=== PATIENT | female | born 1955 | race Caucasian/White ===

== ENCOUNTER 2017-11-06 08:53 | Emergency (ER) | payer OTHER, SELFPAY ==
[2017-11-06 09:00] VITALS: BP 156/81; PULSE 72; RESP 14; TEMP 36.2; O2SAT 100; BMI 19.3
--- NOTE | 2017-11-06 09:11 | DI.RAD.S_ITS ---
PROCEDURE: XR ANKLE LT MIN 3V INDICATIONS: non traumatic left ankle pain TECHNIQUE: 3 views of the ankle were acquired. COMPARISON: None. FINDINGS: Bones: No fractures or dislocations. Ankle mortise is normally aligned. No suspicious bony lesions. Well-corticated rounded/ovoid ossific/calcific densities are evident at the tip of the medial malleolus, suggesting previous injury. There are mild degenerative changes of the tibiotalar joint. Soft tissues: No tibiotalar joint effusion. There is mild soft tissue edema about the ankle, best appreciated anteriorly. IMPRESSION: Mild degenerative changes of the left ankle without acute fracture. Dictated by: Doni Avendano M.D. on 11/06/2017 at 8:41 Approved by: Doni Avendano M.D. on 11/06/2017 at 8:42
[2017-11-06 09:26] VITALS: PULSE 70
--- NOTE | 2017-11-06 09:31 | ED.LOWEXIN ---
HPI - Extremity Injury (Lower) General Chief Complaint: Extremity Injury, Lower Stated Complaint: LEFT ANKLE PAIN Time Seen by Provider: 11/06/17 09:05 Source: patient Mode of arrival: wheelchair Limitations: no limitations History of Present Illness HPI Narrative: Patient is a 62-year-old female presents with left ankle pain this. She denies any injury or potential injury last evening. She woke up this morning and was in such bad pain she was crawling on her hands and knees in the house. No numbness or tingling. She is able to move it freely without any pain or difficulty and feeling silly for coming to the emergency department. She has pain anteriorly between her malleoli. She has put ice on it no swelling no rash, no numbness or tingling. Related Data Home Medications Medication Instructions Recorded Confirmed No Known Home Medications 11/06/17 11/06/17 Allergies Allergy/AdvReac Type Severity Reaction Status Date / Time ciprofloxacin [From Cipro] Allergy Intermediate Hives Verified 11/06/17 09:05 Sulfa (Sulfonamide Allergy Intermediate Shakiness Verified 11/06/17 09:05 Antibiotics) promethazine [From Phenergan] AdvReac Intermediate Shakiness Verified 11/06/17 09:05 Review of Systems Review of Systems GENERAL: Denies chills,fever HEENT: Denies throat pain RESPIRATORY: Denies dyspnea, cough, wheezing CARDIOVASCULAR: Denies chest pain, palpitations GASTROINTESTINAL: Denies nausea, vomiting MUSCULOSKELETAL: See HPI SKIN: No rash, no laceration, no pruritus NEUROLOGIC: Denies weakness, dizziness, headache, numbness 8 point review of systems is negative except for those stated above and HPI PFSH Medical History Dupuytren's contracture (Acute) Social History Smoking Status: Never smoker Exam Initial Vital Signs Initial Vital Signs: Vital Signs Temperature 97.1 F L 11/06/17 09:00 Pulse Rate 72 11/06/17 09:00 Respiratory Rate 14 11/06/17 09:00 Blood Pressure 156/81 H 11/06/17 09:00 Pulse Oximetry 100 11/06/17 09:00 GENERAL: Well-appearing, well-nourished and in no acute distress. CARDIOVASCULAR: peripheral pulses in tact, cap refill <2 sec RESPIRATORY: No respiratory distress, speaks in full sentences without difficulty EXTREMITIES: Normal range of motion, no clubbing or edema. Neurovascularly intact -left ankle no gross bony deformities no swelling. Full range of motion no achellies tenderness. Distal pedal pulse intact. No foot pain no gross bony deformity NEUROLOGICAL: Cranial nerves II through XII grossly intact. Normal gait and speech. SKIN: Warm, dry, no petechiae, no rashes or lesions. Course Orders Ordered: ED Orders 11/06/17 09:11 XR ankle LT min 3V Stat Vital Signs - 8 hr 11/06/17 09:00 11/06/17 09:26 11/06/17 10:05 Temperature 97.1 F L Pulse Rate 72 70 Pulse Rate [Left Dorsalis Pedis] 70 Respiratory Rate 14 12 Blood Pressure 156/81 H Blood Pressure [Right Arm] 138/75 H Pulse Oximetry 100 99 MDM - Extremity Injury (Lower) Imaging Data XR left ankle: Attestation: I personally reviewed and interpreted this imaging study as follows: My impression: no fx Radiologist's impression: PROCEDURE: XR ANKLE LT MIN 3V INDICATIONS: non traumatic left ankle pain TECHNIQUE: 3 views of the ankle were acquired. COMPARISON: None. FINDINGS: Bones: No fractures or dislocations. Ankle mortise is normally aligned. No suspicious bony lesions. Well-corticated rounded/ovoid ossific/calcific densities are evident at the tip of the medial malleolus, suggesting previous injury. There are mild degenerative changes of the tibiotalar joint. Soft tissues: No tibiotalar joint effusion. There is mild soft tissue edema about the ankle, best appreciated anteriorly. IMPRESSION: Mild degenerative changes of the left ankle without acute fracture. Dictated by: Doni Avendano M.D. on 11/06/2017 at 8:41 Discharge Plan Departure Patient Disposition: Home, Self-Care Clinical Impression: Acute ankle pain Discharge Date/Time: 11/06/17 10:07 Interventions: ED Discharge Assessment Last Done: 11/06/17 10:06 Instructions: DI for Ankle Pain Activity Restrictions/Additional Instructions: *You have been diagnosed with ankle pain *What to do: No visualized fracture on x-ray, recommend ice 20 min at a time, elevate, increase activity as tolerated *Continue to take medications as directed *Follow up with your primary care provider in 2-3 days *Return to ER if you should have increasing pain, numbness, tingling, weakness or any new, worsening or concerning symptoms Prescriptions: No Action No Known Home Medications RF: 0
[2017-11-06 10:05] VITALS: BP 138/75; PULSE 70; RESP 12; O2SAT 99
== END 2017-11-06 10:07 | disposition home or self-care (01) ==
PROVIDERS: Emergency Provider Emergency Medicine
DX: M25.572 Pain in left ankle and joints of left foot (principal)
CPT/HCPCS: 73610; 99282; 99283

== ENCOUNTER 2020-02-01 07:50 | Emergency (ER) | payer OTHER, SELFPAY ==
[2020-02-01] VITALS (10 sets, daily range): BP systolic 125–143; BP diastolic 58–75; PULSE 50–63; RESP 11–30; TEMP 35.7; O2SAT 94–100; BMI 18.8
--- NOTE | 2020-02-01 08:17 | ED.ABDPAIN ---
HPI - Abdominal Pain General Chief Complaint: Abdominal Pain Stated Complaint: RLQ Abd Pain Time Seen by Provider: 02/01/20 07:58 Source: patient Mode of arrival: Ambulatory Limitations: no limitations History of Present Illness HPI narrative: Patient is a 64-year-old female who presents with sudden onset of right lower quadrant pain. She said yesterday she was doing well went to bed without any issue and this morning she has intense right lower quadrant pain. She denies any back pain pain does not seem to come and go it is fairly constant. No radiation. No history of kidney stones. She denies any fever or chills. MD complaint: abdominal pain Onset (ago): hour(s) Pain Consistency: constant Location: RLQ Severity: moderate Quality: cramping and stabbing Radiation: none Migration to: no migration Relieving factors: nothing Exacerbating factors: nothing Related Data Previous Rx's Medication Instructions Recorded hydrocodone-acetaminophen 1 tab PO Q6H PRN #10 tab 02/01/20 ondansetron 4 mg PO Q8H PRN #10 tab 02/01/20 Allergies Allergy/AdvReac Type Severity Reaction Status Date / Time ciprofloxacin [From Cipro] Allergy Intermediate Hives Verified 11/06/17 09:05 Sulfa (Sulfonamide Allergy Intermediate Shakiness Verified 11/06/17 09:05 Antibiotics) promethazine [From Phenergan] AdvReac Intermediate Shakiness Verified 11/06/17 09:05 Review of Systems Review of Systems Narrative: GENERAL: Denies chills, fatigue, malaise, fever, sweats, travel HEENT: Denies sinus pain, ear pain, sore throat, difficulty swallowing, neck pain RESPIRATORY: Denies dyspnea, cough, wheezing, hemoptysis, sputum. CARDIOVASCULAR: Denies chest pain, palpitations, orthopnea, edema GASTROINTESTINAL: See HPI : Denies dysuria, frequency, incontinence, hematuria, urinary retention, flank pain. MUSCULOSKELETAL: Denies weakness, joint pain, or bony pain SKIN: No rash, no erythema, no pruritus NEUROLOGIC: Denies weakness, dizziness, headache, numbness, change in speech, confusion PSYCHIATRIC: No concerning psychosocial issues. 12 point review of systems is negative except for those stated above and HPI Patient History Medical History Dupuytren's contracture (Acute) Hypertension (Acute) Social History Smoking Status: Never smoker Smoking Status: Never smoker alcohol intake frequency: 0-2 drinks per day Substance Use Type: does not use Exam Initial Vital Signs Initial Vital Signs: Vital Signs Temperature 96.3 F L 02/01/20 07:55 Pulse Rate 50 L 02/01/20 07:55 Respiratory Rate 18 02/01/20 07:55 Blood Pressure 125/60 02/01/20 07:55 Pulse Oximetry 99 02/01/20 07:55 GENERAL: Patient appears in pain HEENT: Head atraumatic,EOMI, pupils reactive, face symmetric, moist mucous membranes CARDIOVASCULAR: Regular rate and rhythm without murmurs, rubs or gallops. RESPIRATORY: Breath sounds equal bilaterally, no wheezes rales or rhonchi. ABDOMEN: Soft, right lower quadrant pain mild guarding normal bowel sounds : No CVA tenderness EXTREMITIES: Normal range of motion, no clubbing or edema. Neurovascularly intact NEUROLOGICAL: Alert and oriented x4. SKIN: Warm, dry, no laceration, no petechiae, no rashes or lesions. Course Orders Ordered: ED Orders 02/01/20 08:00 Complete Blood Count AUTO DIFF Stat Comprehensive Metabolic Panel Stat Lipase Stat 02/01/20 09:51 CT abdomen pelvis w con Stat Sodium Chloride (Normal Saline 0.9%) 1,000 mls @ 150 mls/hr IV CONT QUITA Last Admin: 02/01/20 08:31 Dose: 150 mls/hr Documented by: ALETA Discontinued Medications Ketorolac Tromethamine (Toradol) 30 mg IV NOW ONE Stop: 02/01/20 08:11 Last Admin: 02/01/20 08:32 Dose: 30 mg Documented by: ALETA Morphine Sulfate (Morphine) 4 mg IV NOW ONE Stop: 02/01/20 08:10 Last Admin: 02/01/20 08:31 Dose: 4 mg Documented by: ALETA Morphine Sulfate (Morphine) 4 mg IV NOW ONE Stop: 02/01/20 10:20 Vital Signs Vital signs: Vital Signs - 8 hr 02/01/20 07:55 02/01/20 07:56 02/01/20 08:00 Temperature 96.3 F L Pulse Rate 50 L 51 L 50 L Respiratory Rate 18 26 H 20 Blood Pressure 125/60 Pulse Oximetry 99 94 96 02/01/20 08:30 02/01/20 08:47 02/01/20 09:00 Temperature Pulse Rate 54 L 56 L 54 L Respiratory Rate 24 19 11 L Blood Pressure 130/58 L 135/58 L Pulse Oximetry 100 100 100 02/01/20 09:30 02/01/20 10:07 Temperature Pulse Rate 63 60 Respiratory Rate 20 30 H Blood Pressure 143/65 H Pulse Oximetry 100 100 MDM - Abdominal Pain Lab Data Attestation: I reviewed the patient's lab results. Result diagrams: 02/01/20 08:00 02/01/20 08:00 Labs: Lab Results 02/01/20 02/01/20 Range/Units 08:00 08:00 WBC 10.1 (4.5-11.0) X10^3/uL RBC 4.10 (4.0-5.2) X10^6/uL Hgb 13.0 (12.0-16.0) g/dL Hct 38.7 (36-46) % MCV 94.2 (80-100) fL MCH 31.6 (26-34) PG MCHC 33.5 (30-36) % RDW 13.2 (11.6-14.8) % Plt Count 206 (150-400) X10^3/uL Neut % (Auto) 74.2 (50-75) % Lymph % (Auto) 21.1 L (25-40) % [place] % (Auto) 1.5 L (3-14) % Eos % (Auto) 1.3 L (2-4) % Baso % (Auto) 1.9 (0-2) % Neut # (Auto) 7500 H (8282-4531) /uL Lymph # (Auto) 2100 (6422-1589) /uL [place] # (Auto) 100 (0-900) /uL Eos # (Auto) 100 (0-450) /uL Baso # (Auto) 200 H (0-100) /uL Sodium 139 (137-145) mmol/L Potassium 3.8 (3.4-5.1) mmol/L Chloride 107 (98-107) mmol/L Carbon Dioxide 26 (22-32) mmol/L BUN 23 H (7-17) mg/dL Creatinine 0.62 (0.52-1.04) mg/dL Estimated GFR > 60.0 (>60) mL/min BUN/Creatinine Ratio 37.1 H (6-22) Glucose 124 H (80-110) mg/dL Calcium 8.8 (8.4-10.2) mg/dL Total Bilirubin 0.6 (0.2-1.3) mg/dL AST 29 (14-36) IU/L ALT 15 (<35) IU/L Alkaline Phosphatase 75 (38-126) U/L Total Protein 6.7 (6.3-8.2) g/dL Albumin 3.9 (3.5-5.0) g/dL Globulin 2.8 (1.7-4.1) g/dL Albumin/Globulin Ratio 1.4 (1.0-2.8) Lipase 120 (23-300) U/L Point of care testing: Urine Dip Bedside Urine Glucose Negative Bedside Urine Bilirubin - Negative Bedside Urine Ketone - Negative Urine Specific [place] 1.015 Bedside Urine Occult Blood +++ Bedside Urine pH 5.5 Bedside Urine Protein - Negative Bedside Urine Urobilinogen - Negative Bedside Urine Nitrite - Negative Bedside Urine Leukocytes - Negative Esterase Imaging Data CT scan - abdomen/pelvis: Radiologist's Impression: PROCEDURE: CT ABDOMEN PELVIS W CON INDICATIONS: Right lower quadrant abdominal pain TECHNIQUE: After the administration of intravenous contrast, 5 mm thick sections acquired from the diaphragm to the symphysis. 5 mm coronal and sagittal reformats were acquired. For radiation dose reduction, the following was used: automated exposure control, adjustment of mA and/or kV according to patient size. COMPARISON: None. FINDINGS: Image quality: Excellent. ABDOMEN: Lung bases: There is mild dependent atelectasis bilaterally. Heart size is normal. There is mild concentric wall thickening of the visualized esophagus. Solid organs: Evaluation of the liver demonstrates no focal hepatic lesions. The gallbladder appears within normal limits without calcified gallstones. Biliary system is non-dilated. Pancreas enhances normally. No peripancreatic fat stranding or fluid collections. No pancreatic duct dilatation. The spleen is normal in size. No adrenal nodules. There is a small obstructing stone at the right ureteropelvic junction measuring 3-4 mm with associated mild to moderate right hydronephrosis. There is a small amount of periureteral and anterior perinephric fluid suggestive of forniceal rupture. Additional bilateral nonobstructing renal stones are also demonstrated, at least 4 on the right and 1 on the left. The largest stone within the right kidney measures 3-4 mm and visualized small left stone measures 2 mm. No left hydronephrosis. Left ureter is nondistended. Peritoneum and bowel: Bowel loops demonstrate normal wall thickness and caliber. There is a small amount of colonic stool as well as mild fecalization in the distal small bowel. Findings are suggestive of mild constipation or stasis. No evidence of appendicitis. There are few colonic diverticula without acute diverticulitis. No free fluid or air. Nodes and vessels: No retroperitoneal or mesenteric adenopathy by size criteria. Aorta and inferior vena cava are normal in size. Miscellaneous: No ventral hernias. PELVIS: Genitourinary: Bladder wall thickness is normal. Miscellaneous: No inguinal hernias or adenopathy. Bones: No suspicious bony lesions. No vertebral body compression fractures. IMPRESSION: 1. Obstructing urinary stone at the right UPJ with associated mild to moderate hydronephrosis. A small amount of associated periureteral and perinephric fluid suggests sequelae of mild forniceal rupture. 2. Additional small bilateral nonobstructing renal stones as described. 3. No evidence of appendicitis. Dictated by: Jeferson Cabrera M.D. on 02/01/2020 at 9:18 ECG Data Attestation: I personally reviewed and interpreted this ECG as follows: Prior ECG tracings: not available for review Interpretation: Normal sinus rhythm rate 51 year interval 188 QRS [address] changes MDM Narrative Medical decision making narrative: Patient's pain is much better after Toradol and morphine. She is found to have 3-4 mm kidney stone on the right with other kidney stones in the kidneys. He has no prior history of kidney stones. Discussed with her straining her urine for lab analysis. No sign of infection. Discharge Plan Departure Patient Disposition: Home Clinical Impression: Kidney stones Discharge Date/Time: 02/01/20 11:09 Instructions: DI for Kidney Stones Activity Restrictions/Additional Instructions: * You've been diagnosed with kidney stone * What to do: Increase fluid intake, Strain urine, try to catch stone * Please follow-up with your primary care provider in the next 2-3 days, you may require urology consultation please discuss this with -If you should have fever, or pain is uncontrolled with medication at home or any other concerning symptoms return to ER for further evaluation MEDICATIONS Take [place] every 6 hours if needed for severe pain Take Zofran every 4-6 hours if needed for nausea CONTROLLED SUBSTANCE DISCHARGE (Narcotoic/benzodiazepine) 1. You have been prescribed narcotic medications, it does have acetaminophen/Tylenol/paracetamol in it so do not take extra Tylenol or Tylenol containing products 2. Please understand that we cannot provide further refills of narcotics, benzodiazepines or controlled substances through the ED and her pain management will need to be through your provider. 3. While on these medications you cannot drive or operate heavy machinery. 4. You cannot sign legal documents or perform any duties such as this. 5. As long as you're taking opiate pain medications he should also be taking a stool softener such as Colace, Dulcolax, MiraLAX or prune juice, to help avoid constipation. Prescriptions: New hydrocodone-acetaminophen 5-325 mg tablet 1 tab PO Q6H PRN (Reason: pain) Qty: 10 RF: 0 ondansetron 4 mg tablet,disintegrating 4 mg PO Q8H PRN (Reason: nausea and vomiting) Qty: 10 RF: 0
[2020-02-01 08:18] LABS: Add Manual Diff / Slide Review NO; Basophils Absolute Auto 200 /uL (0-100); Basophils Percent Auto 1.9 % (0-2); Eosinophils Absolute Auto 100 /uL (0-450); Eosinophils Percent Auto 1.3 % (2-4); Hematocrit 38.7 % (36-46); Lymphocytes Absolute Auto 2100 /uL (1100-4500); Lymphocytes Percent Auto 21.1 % (25-40); Mean Corpuscular HGB Conc 33.5 % (30-36); Mean Corpuscular Hemoglobin 31.6 PG (26-34); Mean Corpuscular Volume 94.2 fL (80-100); Monocytes Absolute Auto 100 /uL (0-900); Monocytes Percent Auto 1.5 % (3-14); Neutrophils Absolute Auto 7500 /uL (1500-7000); Neutrophils Percent Auto 74.2 % (50-75); Platelet Count 206 X10^3/uL (150-400); Red Cell Distribution Width 13.2 % (11.6-14.8); White Blood Cell Count 10.1 X10^3/uL (4.5-11.0)
[2020-02-01 08:22] LABS: Alanine Aminotransferase 15 IU/L (<35); Albumin 3.9 g/dL (3.5-5.0); Albumin Globulin Ratio 1.4 (1.0-2.8); Alkaline Phosphatase 75 U/L (38-126); Aspartate Aminotransferase 29 IU/L (14-36); BUN Creatinine Ratio 37.1 (6-22); Bilirubin Total 0.6 mg/dL (0.2-1.3); Blood Urea Nitrogen 23 mg/dL (7-17); Calcium 8.8 mg/dL (8.4-10.2); Carbon Dioxide 26 mmol/L (22-32); Chloride 107 mmol/L (98-107); Estimated Glomerular Filt Rate > 60.0 mL/min (>60); Globulin 2.8 g/dL (1.7-4.1); Glucose 124 mg/dL (80-110); HEMOLYSIS 16 (0-50); Lipase 120 U/L (23-300); Potassium 3.8 mmol/L (3.4-5.1); Sodium 139 mmol/L (137-145); Total Protein 6.7 g/dL (6.3-8.2)
[2020-02-01] MEDS: SODIUM CHLORIDE 0.9% 1,000 ML 150 ML IV (08:31)
[2020-02-01] MEDS: MORPHINE 4 MG/ML INJ IV (08:31)
[2020-02-01] MEDS: KETOROLAC 60 MG/2 ML VIAL 30 MG IV (08:32)
--- NOTE | 2020-02-01 09:51 | DI.CT.S_ITS ---
PROCEDURE: CT ABDOMEN PELVIS W CON INDICATIONS: Right lower quadrant abdominal pain TECHNIQUE: After the administration of intravenous contrast, 5 mm thick sections acquired from the diaphragm to the symphysis. 5 mm coronal and sagittal reformats were acquired. For radiation dose reduction, the following was used: automated exposure control, adjustment of mA and/or kV according to patient size. COMPARISON: None. FINDINGS: Image quality: Excellent. ABDOMEN: Lung bases: There is mild dependent atelectasis bilaterally. Heart size is normal. There is mild concentric wall thickening of the visualized esophagus. Solid organs: Evaluation of the liver demonstrates no focal hepatic lesions. The gallbladder appears within normal limits without calcified gallstones. Biliary system is non-dilated. Pancreas enhances normally. No peripancreatic fat stranding or fluid collections. No pancreatic duct dilatation. The spleen is normal in size. No adrenal nodules. There is a small obstructing stone at the right ureteropelvic junction measuring 3-4 mm with associated mild to moderate right hydronephrosis. There is a small amount of periureteral and anterior perinephric fluid suggestive of forniceal rupture. Additional bilateral nonobstructing renal stones are also demonstrated, at least 4 on the right and 1 on the left. The largest stone within the right kidney measures 3-4 mm and visualized small left stone measures 2 mm. No left hydronephrosis. Left ureter is nondistended. Peritoneum and bowel: Bowel loops demonstrate normal wall thickness and caliber. There is a small amount of colonic stool as well as mild fecalization in the distal small bowel. Findings are suggestive of mild constipation or stasis. No evidence of appendicitis. There are few colonic diverticula without acute diverticulitis. No free fluid or air. Nodes and vessels: No retroperitoneal or mesenteric adenopathy by size criteria. Aorta and inferior vena cava are normal in size. Miscellaneous: No ventral hernias. PELVIS: Genitourinary: Bladder wall thickness is normal. Miscellaneous: No inguinal hernias or adenopathy. Bones: No suspicious bony lesions. No vertebral body compression fractures. IMPRESSION: 1. Obstructing urinary stone at the right UPJ with associated mild to moderate hydronephrosis. A small amount of associated periureteral and perinephric fluid suggests sequelae of mild forniceal rupture. 2. Additional small bilateral nonobstructing renal stones as described. 3. No evidence of appendicitis. Dictated by: Jeferson Cabrera M.D. on 02/01/2020 at 9:18 Approved by: Jeferson Cabrera M.D. on 02/01/2020 at 9:25
--- NOTE | 2020-02-01 10:37 | PC.NURSE ---
Patient reports pain after CT which was significant subsided on it's own and is now a /. Refuses morphine at this time.
== END 2020-02-01 11:09 | disposition home or self-care (01) ==
PROVIDERS: Emergency Provider Emergency Medicine
DX: N20.0 Calculus of kidney (principal)
CPT/HCPCS: 36415; 74177; 80053; 81003; 83690; 85025; 93005; 96361; 96374; 96375; 99284; J1885; J2270; Q9967

== ENCOUNTER → 2020-02-11 10:57 | Outpatient (CLI) | payer OTHER, SELFPAY ==
--- NOTE | 2020-02-11 11:00 | DI.RAD.S_ITS ---
PROCEDURE: XR KUB INDICATIONS: kidney stones TECHNIQUE: One view of the abdomen acquired. COMPARISON: [facility], CR, XR ABDOMEN 1 VIEW, 02/08/2020, 10:37. FINDINGS: Surgical changes and devices: None. Bowel: Bowel gas pattern is normal. Soft tissues: Sub 5 mm right renal calculi appear unchanged. Previous left-sided nephrolithiasis is less conspicuous. Bilateral pelvic phleboliths as before Bones: No suspicious bony lesions. IMPRESSION: Unchanged appearance of right nephrolithiasis. Radiographically, previous left nephrolithiasis less conspicuous since 02/08/20. Dictated by: Kevin Barahona M.D. on 02/11/2020 at 13:53 Approved by: Kevin Barahona M.D. on 02/11/2020 at 13:55
== END ==
PROVIDERS: PCP Family Medicine; Referring Provider Specialist; Visit Provider Specialist
DX: N20.0 Calculus of kidney (principal); N20.1 Calculus of ureter
CPT/HCPCS: 74018; 81002

== ENCOUNTER → 2020-02-22 12:17 | Outpatient (CLI) | payer OTHER, SELFPAY ==
[2020-02-22 13:34] LABS: Calcium 9.4 mg/dL (8.4-10.2)
[2020-02-23 07:29] LABS: Parathyroid Hormone Int 50 pg/mL (15-65)
== END ==
PROVIDERS: PCP Family Medicine; Referring Provider Specialist; Visit Provider Specialist
DX: N39.0 Urinary tract infection, site not specified (principal); N20.0 Calculus of kidney
CPT/HCPCS: 36415; 82310; 83970; 84550; 87086

== ENCOUNTER → 2021-06-20 13:40 | Outpatient (CLI) | payer MEDICARE, SELFPAY ==
--- NOTE | 2021-06-20 13:47 | DI.RAD.S_ITS ---
PROCEDURE: XR KUB INDICATIONS: ureteral calculus TECHNIQUE: One view of the abdomen acquired. COMPARISON: [facility], CT, CT ABDOMEN PELVIS W CON, 02/01/2020, 9:56. [facility], CR, XR KUB, 02/11/2020, 11:03. FINDINGS: Surgical changes and devices: None. Bowel: Bowel gas pattern is normal. Soft tissues: Faintly visualized calcifications are noted overlying the right kidney felt to be relatively similar compared to prior exam. However, overlying stool is present obscuring visualization. There is several small foci of calcification overlying the left kidney not well seen on prior exam. However, overlying bowel loops are present on both current and prior exam within this region. No definitive ureteral calcification is identified. Phleboliths are noted within the pelvis. Visualized solid organ contours appear normal in size. Bones: No suspicious bony lesions. IMPRESSION: Relatively unchanged appearance of calcifications overlying the right kidney. Faint calcifications overlying the region of the left kidney are noted possibly related to nephrolithiasis versus bowel contents. Dictated by: Parisa Gerber M.D. on 06/20/2021 at 17:32 Approved by: Parisa Gerber M.D. on 06/20/2021 at 17:34
== END ==
PROVIDERS: PCP Family Medicine; Referring Provider Specialist; Visit Provider Specialist
DX: N20.2 Calculus of kidney with calculus of ureter (principal)
CPT/HCPCS: 74018

== ENCOUNTER 2021-09-17 14:16 | Emergency (ER) | payer MEDICARE, SELFPAY ==
[2021-09-17 14:23] VITALS: BP 183/88; PULSE 55; RESP 16; TEMP 37; O2SAT 100; BMI 19.5
--- NOTE | 2021-09-17 14:34 | DI.CT.S_ITS ---
PROCEDURE: CT KIDNEY URETER BLADDER (KUB) INDICATIONS: Right flank pain history stones TECHNIQUE: Axial sections were acquired from the lung bases to the pubic symphysis. Coronal and sagittal reformats were performed. For radiation dose reduction, the following was used: automated exposure control, adjustment of mA and/or kV according to patient size. COMPARISON: None. FINDINGS: Image quality: Excellent. Lung bases: Unremarkable. Heart: No significant findings. URINARY:5 mm calculus at the left ureterovesical junction results in moderate right hydronephrosis and hydroureter. Multiple additional nonobstructive calculi present in both kidneys, largest in the right kidney measures 5 mm. Left hydronephrosis. Bladder: Normal wall thickness. No stones. ABDOMEN: Liver: Unremarkable. Gallbladder: Unremarkable. Biliary ducts: Unremarkable. Pancreas: Unremarkable. Spleen: Unremarkable. Adrenal Glands: Unremarkable. Stomach and Bowel: Stomach, small bowel loops, and colon are unremarkable. Moderate fecal debris in the colon. Peritoneum: No abnormal intraperitoneal fluid. No free air. Ventral Wall: No hernia. Abdominal Nodes: No enlarged retroperitoneal or mesenteric lymph nodes. Vessels: Aorta and inferior vena cava are normal in size. PELVIS: Pelvic Organs: Unremarkable. Pelvic Nodes: Unremarkable. Miscellaneous: No inguinal hernias are seen. Bones: Unremarkable. IMPRESSION: 5 mm calculus the right ureterovesical junction results in moderate right hydronephrosis and hydroureter. Additional bilateral nonobstructing renal calculi. Approved by: Christ Sow M.D. on 09/17/2021 at 14:29
[2021-09-17] MEDS: ONDANSETRON 4 MG/2 ML INJ IV (14:39)
[2021-09-17] MEDS: KETOROLAC 30 MG/ML VIAL 15 MG IV (14:39)
--- NOTE | 2021-09-17 14:41 | PC.NURSE ---
History of kidney stones, feels similar. Sudden onset of right flank pain.
[2021-09-17 14:48] LABS: Add Manual Diff / Slide Review NO; Basophils Absolute Auto 0 /uL (0-100); Basophils Percent Auto 0.7 % (0-2); Eosinophils Absolute Auto 100 /uL (0-450); Eosinophils Percent Auto 0.9 % (2-4); Hematocrit 38.6 % (36-46); Hemoglobin 13.1 g/dL (12.0-16.0); Lymphocytes Absolute Auto 2000 /uL (1100-4500); Mean Corpuscular Hemoglobin 31.4 PG (26-34); Mean Corpuscular Volume 92.3 fL (80-100); Monocytes Absolute Auto 700 /uL (0-900); Monocytes Percent Auto 10.7 % (3-14); Neutrophils Absolute Auto 3700 /uL (1500-7000); Neutrophils Percent Auto 56.7 % (50-75); Platelet Count 227 X10^3/uL (150-400); Red Blood Cell Count 4.18 X10^6/uL (4.0-5.2); Red Cell Distribution Width 12.6 % (11.6-14.8); White Blood Cell Count 6.6 X10^3/uL (4.5-11.0)
[2021-09-17 14:55] LABS: Amorphous Sediment Urine 1+; Bacteria Urine None Seen; RBC Urine 0-1/HPF (0-5/HPF); WBC Urine None Seen (0-5/HPF)
[2021-09-17 15:05] LABS: Alanine Aminotransferase 15 IU/L (<35); Albumin 4.7 g/dL (3.5-5.0); Albumin Globulin Ratio 1.7 (1.0-2.8); Alkaline Phosphatase 84 U/L (38-126); Aspartate Aminotransferase 29 IU/L (14-36); BUN Creatinine Ratio 27.9 (6-22); Bilirubin Total 0.3 mg/dL (0.2-1.3); Blood Urea Nitrogen 19 mg/dL (7-17); Calcium 9.2 mg/dL (8.4-10.2); Carbon Dioxide 27 mmol/L (22-32); Chloride 105 mmol/L (98-107); Estimated Glomerular Filt Rate > 60 mL/min (>60); Globulin 2.8 g/dL (1.7-4.1); Glucose 117 mg/dL (80-110); HEMOLYSIS < 15 (0-50); Potassium 3.6 mmol/L (3.4-5.1); Sodium 140 mmol/L (137-145); Total Protein 7.5 g/dL (6.3-8.2)
[2021-09-17] MEDS: MORPHINE 4 MG/ML INJ IV (15:26)
[2021-09-17 15:30] VITALS: BP 187/82; PULSE 61; RESP 20; O2SAT 100
[2021-09-17 16:00] VITALS: BP 178/80; PULSE 56; RESP 16; O2SAT 100
[2021-09-17 16:03] VITALS: PULSE 57; O2SAT 100
--- NOTE | 2021-09-17 16:12 | PC.NURSE ---
Pt experiencing intermittent severe right flank pain, [facility] aware.
[2021-09-17 16:30] VITALS: BP 162/74; PULSE 55; O2SAT 94
[2021-09-17] MEDS: HYDROMORPHONE 0.5 MG INJ IV (16:54)
[2021-09-17 17:00] VITALS: BP 153/67; PULSE 54; O2SAT 100
[2021-09-17] MEDS: ONDANSETRON 4 MG ODT SL (17:45)
--- NOTE | 2021-09-17 19:43 | ED_ITS ---
HPI - Female Genitourinary <Izabela Sinha PA-C - Last Filed: 09/17/21 19:58> General Chief complaint: Urogenital-Female Stated complaint: Thinks kidney stone, right side pain Time Seen by Provider: 09/17/21 14:44 History of Present Illness HPI Narrative: Patient is a 66-year-old female presenting with right-sided flank pain. She denies any urinary urgency, burning with urination, or blood in her urine. She reports episodic severe right flank pain with occasional nausea and dizziness at the height of the pain. She describes the pain as 10/10 while it is at its worse. She has not taken anything for pain. She has a history of a kidney stone 1.5 years ago. Related Data Home Medications Medication Instructions Recorded Confirmed cholecalciferol (vitamin D3) 100 100 mcg PO DAILY 02/11/20 06/29/21 mcg (4,000 unit) capsule Previous Rx's Medication Instructions Recorded ondansetron 4 mg disintegrating 4 mg PO Q6-8H PRN #10 tab 09/17/21 tablet tamsulosin 0.4 mg capsule (Flomax) 0.4 mg PO DAILY #10 cap 09/17/21 Allergies Allergy/AdvReac Type Severity Reaction Status Date / Time ciprofloxacin [From Cipro] Allergy Intermediate Hives Verified 09/17/21 14:25 Sulfa (Sulfonamide Allergy Intermediate Shakiness Verified 09/17/21 14:25 Antibiotics) promethazine [From Phenergan] AdvReac Intermediate Shakiness Verified 09/17/21 14:25 Review of Systems <Izabela Sinha PA-C - Last Filed: 09/17/21 19:58> Review of Systems Narrative: GENERAL: Denies fatigue, fever, or chills HEENT: Denies ear pain, vision changes, sore throat, or difficulty swallowing RESPIRATORY: Denies shortness of breath, cough, or wheezing CARDIOVASCULAR: Denies chest pain, pressure, palpitations, or edema GASTROINTESTINAL: Reports occasional nausea, denies vomiting, changes in bowel movements, or abdominal pain : See HPI MUSCULOSKELETAL: Denies weakness, arthralgias, or myalgias SKIN: No rash, pruritis, or erythema NEUROLOGIC: Denies weakness, headache, numbness, tingling or confusion PSYCHIATRIC: No concerning psychosocial issues. Patient History <Izabela Sinha PA-C - Last Filed: 09/17/21 19:58> Medical History Arthritis Bilateral nephrolithiasis Calcium nephrolithiasis Dupuytren's contracture Hypertension Right ureteral calculus alcohol intake frequency: 0-2 drinks per day Substance Use Type: does not use Exam <DARIAN Dickson Last Filed: 09/17/21 19:58> Narrative Exam Narrative: GENERAL: 66 year old patient appears stated age. Well-developed patient, in moderate distress. HEAD: Atraumatic. Normocephalic. EYES: Pupils equal round and reactive. Extraocular motions intact. No scleral icterus. No injection or drainage. ENT: Nose without bleeding, purulent drainage. Throat without erythema, tonsillar hypertrophy or exudate. Airway patent. NECK: Trachea midline. Non tender CARDIOVASCULAR: Regular rate and rhythm without murmurs, gallops, or rubs. RESPIRATORY: Clear to auscultation. Breath sounds equal bilaterally. No wheezes, rales, or rhonchi. GASTROINTESTINAL: Abdomen soft, non-tender, nondistended. EXTREMITIES: No edema or joint tenderness. BACK: Nontender without deformity or crepitance. No flank tenderness to palpation and no CVA tenderness. NEURO: AOx3. SKIN: No rash or erythema of visible areas Initial Vital Signs Initial Vital Signs: Vital Signs Temperature 98.6 F 09/17/21 14:23 Pulse Rate 55 L 09/17/21 14:23 Respiratory Rate 16 09/17/21 14:23 Blood Pressure 183/88 H 09/17/21 14:23 Pulse Oximetry 100 09/17/21 14:23 <Carson Menchaca DO - Last Filed: 09/18/21 01:58> Initial Vital Signs Initial Vital Signs: Vital Signs Temperature 98.6 F 09/17/21 14:23 Pulse Rate 55 L 09/17/21 14:23 Respiratory Rate 16 09/17/21 14:23 Blood Pressure 183/88 H 09/17/21 14:23 Pulse Oximetry 100 09/17/21 14:23 Course <Izabela Sinha PA-C - Last Filed: 09/17/21 19:58> Orders Ordered: Discontinued Medications Hydromorphone HCl (Hydromorphone 0.5 Mg Inj) 0.5 mg IV NOW ONE Stop: 09/17/21 16:46 Last Admin: 09/17/21 16:54 Dose: 0.5 mg Documented by: ZARA Ketorolac Tromethamine (Ketorolac 30 Mg/Ml Vial) 15 mg IV NOW ONE Stop: 09/17/21 14:36 Last Admin: 09/17/21 14:39 Dose: 15 mg Documented by: FRANCIE Morphine Sulfate (Morphine 4 Mg/Ml Inj) 4 mg IV NOW ONE Stop: 09/17/21 15:24 Last Admin: 09/17/21 15:26 Dose: 4 mg Documented by: ZARA Ondansetron HCl (Ondansetron 4 Mg/2 Ml Inj) 4 mg IV NOW ONE Stop: 09/17/21 14:37 Last Admin: 09/17/21 14:39 Dose: 4 mg Documented by: FRANCIE Ondansetron HCl (Ondansetron 8 Mg Tablet) 8 mg PO NOW ONE Stop: 09/17/21 17:34 Ondansetron HCl (Ondansetron 8 Mg Tablet) 4 mg PO NOW ONE Stop: 09/17/21 17:39 Ondansetron HCl (Ondansetron 4 Mg Odt) 4 mg SL NOW ONE Stop: 09/17/21 17:42 Last Admin: 09/17/21 17:45 Dose: 4 mg Documented by: ZARA Vital Signs Vital signs: Vital Signs - 8 hr 09/17/21 14:23 09/17/21 15:30 09/17/21 16:00 Temperature 98.6 F Pulse Rate 55 L 61 56 L Respiratory Rate 16 20 16 Blood Pressure 183/88 H 187/82 H 178/80 H Pulse Oximetry 100 100 100 09/17/21 16:03 09/17/21 16:30 09/17/21 17:00 Temperature Pulse Rate 57 L 55 L 54 L Respiratory Rate Blood Pressure 162/74 H 153/67 H Pulse Oximetry 100 94 100 <Carson Menchaca DO - Last Filed: 09/18/21 01:58> Orders Ordered: Discontinued Medications Hydromorphone HCl (Hydromorphone 0.5 Mg Inj) 0.5 mg IV NOW ONE Stop: 09/17/21 16:46 Last Admin: 09/17/21 16:54 Dose: 0.5 mg Documented by: ZARA Ketorolac Tromethamine (Ketorolac 30 Mg/Ml Vial) 15 mg IV NOW ONE Stop: 09/17/21 14:36 Last Admin: 09/17/21 14:39 Dose: 15 mg Documented by: FRANCIE Morphine Sulfate (Morphine 4 Mg/Ml Inj) 4 mg IV NOW ONE Stop: 09/17/21 15:24 Last Admin: 09/17/21 15:26 Dose: 4 mg Documented by: ZARA Ondansetron HCl (Ondansetron 4 Mg/2 Ml Inj) 4 mg IV NOW ONE Stop: 09/17/21 14:37 Last Admin: 09/17/21 14:39 Dose: 4 mg Documented by: FRANCIE Ondansetron HCl (Ondansetron 8 Mg Tablet) 8 mg PO NOW ONE Stop: 09/17/21 17:34 Ondansetron HCl (Ondansetron 8 Mg Tablet) 4 mg PO NOW ONE Stop: 09/17/21 17:39 Ondansetron HCl (Ondansetron 4 Mg Odt) 4 mg SL NOW ONE Stop: 09/17/21 17:42 Last Admin: 09/17/21 17:45 Dose: 4 mg Documented by: ZARA Vital Signs Vital signs: Vital Signs - 8 hr 09/17/21 14:23 09/17/21 15:30 09/17/21 16:00 Temperature 98.6 F Pulse Rate 55 L 61 56 L Respiratory Rate 16 20 16 Blood Pressure 183/88 H 187/82 H 178/80 H Pulse Oximetry 100 100 100 09/17/21 16:03 09/17/21 16:30 09/17/21 17:00 Temperature Pulse Rate 57 L 55 L 54 L Respiratory Rate Blood Pressure 162/74 H 153/67 H Pulse Oximetry 100 94 100 MDM - Female Genitourinary <Izabela Sinha PA-C - Last Filed: 09/17/21 19:58> Lab Data Result diagrams: 09/17/21 14:41 09/17/21 14:41 Labs: Lab Results 09/17/21 09/17/21 09/17/21 Range/Units 14:31 14:41 14:41 WBC 6.6 (4.5-11.0) X10^3/uL RBC 4.18 (4.0-5.2) X10^6/uL Hgb 13.1 (12.0-16.0) g/dL Hct 38.6 (36-46) % MCV 92.3 (80-100) fL MCH 31.4 (26-34) PG MCHC 34.0 (30-36) % RDW 12.6 (11.6-14.8) % Plt Count 227 (150-400) X10^3/uL Neut % (Auto) 56.7 (50-75) % Lymph % (Auto) 31.0 (25-40) % [place] % (Auto) 10.7 (3-14) % Eos % (Auto) 0.9 L (2-4) % Baso % (Auto) 0.7 (0-2) % Neut # (Auto) 3700 (1902-2375) /uL Lymph # (Auto) 2000 (6165-1201) /uL [place] # (Auto) 700 (0-900) /uL Eos # (Auto) 100 (0-450) /uL Baso # (Auto) 0 (0-100) /uL Sodium 140 (137-145) mmol/L Potassium 3.6 (3.4-5.1) mmol/L Chloride 105 (98-107) mmol/L Carbon Dioxide 27 (22-32) mmol/L BUN 19 H (7-17) mg/dL Creatinine 0.68 (0.52-1.04) mg/dL Estimated GFR > 60 (>60) mL/min BUN/Creatinine Ratio 27.9 H (6-22) Glucose 117 H (80-110) mg/dL Calcium 9.2 (8.4-10.2) mg/dL Total Bilirubin 0.3 (0.2-1.3) mg/dL AST 29 (14-36) IU/L ALT 15 (<35) IU/L Alkaline Phosphatase 84 (38-126) U/L Total Protein 7.5 (6.3-8.2) g/dL Albumin 4.7 (3.5-5.0) g/dL Globulin 2.8 (1.7-4.1) g/dL Albumin/Globulin Ratio 1.7 (1.0-2.8) Urine RBC 0-1/hpf (0-5/HPF) Urine WBC None seen (0-5/HPF) Amorphous Sediment 1+ Urine Bacteria None seen (None) Ur Culture Indicated? Culture not indicate Urine Dip Bedside Urine Glucose Negative Bedside Urine Bilirubin - Negative Bedside Urine Ketone +/- 5 Urine Specific [place] 6.0 Bedside Urine Occult Blood - Negative Bedside Urine Protein - Negative Bedside Urine Urobilinogen - Negative Bedside Urine Nitrite - Negative Bedside Urine Leukocytes - Negative Esterase Imaging Data CT scan - abdomen/pelvis: Radiologist's Impression: [address] [address] [address] Scan Report Signed Patient: Nadya Vrik MR#: [id number] : 1955 Acct:[id number] Age/Sex: 66 / F Date of Service: 09/17/21 Loc: ED Accession Number: [id number] ?? Procedure: CT kidney ureter bladder (KUB) Ordering Provider: Akila Perez D.O. PROCEDURE:? CT KIDNEY URETER BLADDER (KUB) ? INDICATIONS:? Right flank pain history stones ? TECHNIQUE:? Axial sections were acquired from the lung bases to the pubic symphysis.? Coronal and sagittal reformats were performed.? For radiation dose reduction, the following was used: ?automated exposure control, adjustment of mA and/or kV according to patient size.? ? COMPARISON:? None. ? FINDINGS:? Image quality:? Excellent.? ? Lung bases:? Unremarkable.? ? Heart:? No significant findings. ? URINARY:5 mm calculus at the left ureterovesical junction results in moderate right hydronephrosis and hydroureter.? Multiple additional nonobstructive calculi present in both kidneys, largest in the right kidney measures 5 mm.? Left hydronephrosis. ? Bladder:? Normal wall thickness. No stones. ? ? ? ABDOMEN: Liver:? Unremarkable.? ? Gallbladder:? Unremarkable.? ? Biliary ducts:? Unremarkable.? ? Pancreas:? Unremarkable.? ? Spleen:? Unremarkable.? ? Adrenal Glands:? Unremarkable.? ? ? Stomach and Bowel:? Stomach, small bowel loops, and colon are unremarkable.? Moderate fecal debris in the colon. Peritoneum:? No abnormal intraperitoneal fluid.? No free air.? ? Ventral Wall: ? No hernia.? Abdominal Nodes:? No enlarged retroperitoneal or mesenteric lymph nodes.? Vessels:? Aorta and inferior vena cava are normal in size.? ? PELVIS: Pelvic Organs:? Unremarkable.? ? Pelvic Nodes: Unremarkable. Miscellaneous: No inguinal hernias are seen. ? ? ? Bones:? Unremarkable. ? IMPRESSION:? ? 5 mm calculus the right ureterovesical junction results in moderate right hydron ephrosis and hydroureter. ? Additional bilateral nonobstructing renal calculi. ? Approved by: Christ Sow M.D. on 09/17/2021 at 14:29? [facility] Narrative Medical decision making narrative: Patient is a 66-year-old female presenting with episodic right flank pain. Her CT reveals a 5 mm calculus in the right ureterovesical junction with moderate right hydronephrosis and hydroureter. This is likely the cause of her symptoms. Her urinalysis shows no sign of infection. She was given IV Zofran, 4 mg of morphine, and 0.5 mg of Dilaudid which helped her symptoms. Due to the size of her stone, I sent in a prescription for Flomax and Zofran. She declined a prescription for pain as she states she has an old one still at home. I instructed her to follow up with Dr. Canales tomorrow for further evaluation and management. Findings and discharge diagnosis discussed with patient/family followed by verbalization of understanding Return precautions discussed with patient/family whom verbalize understanding. <Carson Menchaca, DO - Last Filed: 09/18/21 01:58> Lab Data Labs: Lab Results 09/17/21 09/17/21 09/17/21 Range/Units 14:31 14:41 14:41 WBC 6.6 (4.5-11.0) X10^3/uL RBC 4.18 (4.0-5.2) X10^6/uL Hgb 13.1 (12.0-16.0) g/dL Hct 38.6 (36-46) % MCV 92.3 (80-100) fL MCH 31.4 (26-34) PG MCHC 34.0 (30-36) % RDW 12.6 (11.6-14.8) % Plt Count 227 (150-400) X10^3/uL Neut % (Auto) 56.7 (50-75) % Lymph % (Auto) 31.0 (25-40) % [place] % (Auto) 10.7 (3-14) % Eos % (Auto) 0.9 L (2-4) % Baso % (Auto) 0.7 (0-2) % Neut # (Auto) 3700 (4798-8100) /uL Lymph # (Auto) 2000 (0588-3951) /uL [place] # (Auto) 700 (0-900) /uL Eos # (Auto) 100 (0-450) /uL Baso # (Auto) 0 (0-100) /uL Sodium 140 (137-145) mmol/L Potassium 3.6 (3.4-5.1) mmol/L Chloride 105 (98-107) mmol/L Carbon Dioxide 27 (22-32) mmol/L BUN 19 H (7-17) mg/dL Creatinine 0.68 (0.52-1.04) mg/dL Estimated GFR > 60 (>60) mL/min BUN/Creatinine Ratio 27.9 H (6-22) Glucose 117 H (80-110) mg/dL Calcium 9.2 (8.4-10.2) mg/dL Total Bilirubin 0.3 (0.2-1.3) mg/dL AST 29 (14-36) IU/L ALT 15 (<35) IU/L Alkaline Phosphatase 84 (38-126) U/L Total Protein 7.5 (6.3-8.2) g/dL Albumin 4.7 (3.5-5.0) g/dL Globulin 2.8 (1.7-4.1) g/dL Albumin/Globulin Ratio 1.7 (1.0-2.8) Urine RBC 0-1/hpf (0-5/HPF) Urine WBC None seen (0-5/HPF) Amorphous Sediment 1+ Urine Bacteria None seen (None) Ur Culture Indicated? Culture not indicate Urine Dip Bedside Urine Glucose Negative Bedside Urine Bilirubin - Negative Bedside Urine Ketone +/- 5 Urine Specific [place] 6.0 Bedside Urine Occult Blood - Negative Bedside Urine Protein - Negative Bedside Urine Urobilinogen - Negative Bedside Urine Nitrite - Negative Bedside Urine Leukocytes - Negative Esterase Discharge Plan Departure Patient Disposition: Home Clinical Impression: Right ureteral calculus Instructions: DI for Kidney Stones Activity Restrictions/Additional Instructions: *You have been diagnosed with a 5 mm right kidney stone. You have been given 2 prescriptions today, please take these as directed. You should follow up with Dr. Canales's office tomorrow for further evaluation and management. Please return back to the ER if you develop any fever, burning with urination, increased flank pain, increased vomiting, or any other concerning symptoms. *What to do: *Please continue to take your regular medications as directed. [X] New medication prescriptions sent to your pharmacy: [[facility]] [ ] New medication written as a paper prescription [ ] No new medications given *Please follow up with your primary care provider in 2-3 days, call for an appointment. Let them know you were seen in the Emergency Department and that we ask that you be seen in follow up. We will electronically transmit a record of today's note if your PCP is in our system *If you do not have a primary care provider please contact the [facility] Call Center at [phone] and they can help get you set up with a doctor in the community. *Return to Emergency Department if you should have any new, worsening or concerning symptoms, such as [fever greater than 101 F, shaking chills, worsening pain, persistent vomiting or other bothersome symptoms] Prescriptions: New tamsulosin [Flomax] 0.4 mg capsule 0.4 mg PO DAILY Qty: 10 0RF ondansetron 4 mg tablet,disintegrating 4 mg PO Q6-8H PRN (Reason: nausea and vomiting) Qty: 10 0RF No Action cholecalciferol (vitamin D3) 100 mcg (4,000 unit) capsule 100 mcg PO DAILY 0RF Referrals: Latisha Bonilla MD [Primary Care Provider] - Marcello Mcnamara MD [Physician] - <Carson Menchaca DO - Last Filed: 09/18/21 01:58> Cosign ED Attending Doloresature Attestation: I was immediately available in the department for consultation. Documentation has been reviewed. I agree with assessment and plan.
== END 2021-09-17 17:48 | disposition home or self-care (01) ==
PROVIDERS: Emergency Medicine; Emergency Provider Physician Assistant; PCP Family Medicine
DX: N20.1 Calculus of ureter (principal)
CPT/HCPCS: 36415; 74176; 80053; 81003; 81015; 85025; 87086; 96374; 96375; 99284; J1170; J1885; J2270; J2405

== ENCOUNTER → 2021-10-09 10:35 | Outpatient (CLI) | payer MEDICARE, SELFPAY ==
--- NOTE | 2021-10-09 10:38 | DI.RAD.S_ITS ---
PROCEDURE: XR KUB INDICATIONS: Left kidney stone TECHNIQUE: One view of the abdomen acquired. COMPARISON: [facility], CT, CT KIDNEY URETER BLADDER (KUB), 09/17/2021, 14:38. [facility], CR, XR KUB, 02/11/2020, 11:03. [facility], CR, XR KUB, 06/20/2021, 15:00. FINDINGS: Surgical changes and devices: None. Bowel: Bowel gas pattern is normal. Soft tissues: Numerous nonobstructing kidney stones can be seen, which are larger and more numerous on the right than on the left. On the prior CT, this patient had a 5 mm stone at the left ureterovesicular junction. This is believed to be resolved, with a persistent left-sided pelvic phlebolith seen. Visualized solid organ contours appear normal in size. Bones: No suspicious bony lesions. Age-appropriate bony degenerative changes are seen. IMPRESSION: There is believed to be interval resolution of the previously seen left ureterovesicular junction stone. Numerous nonobstructing bilateral renal stones are again seen. If it would be helpful for clinical management decision making in this patient with this given history, please consider a dedicated noncontrast CT of the abdomen pelvis for further evaluation. Dictated by: Melvin Mott M.D. on 10/09/2021 at 10:12 Approved by: Melvin Mott M.D. on 10/09/2021 at 10:14
== END ==
PROVIDERS: PCP Family Medicine; Referring Provider Specialist; Visit Provider Specialist
DX: N20.0 Calculus of kidney (principal)
CPT/HCPCS: 74018

== ENCOUNTER → 2021-11-01 11:10 | Outpatient (CLI) | payer MEDICARE, SELFPAY ==
[2021-11-01 11:46] LABS: COVID19 -Nasal RAPID Negative (Negative)
== END ==
PROVIDERS: PCP Family Medicine; Visit Provider Specialist
DX: Z20.822 Contact with and (suspected) exposure to COVID-19 (principal)
CPT/HCPCS: 87635; C9803

== ENCOUNTER 2021-11-03 06:29 | Day surgery (SDC) | payer MEDICARE, SELFPAY ==
[2021-11-01 08:55] VITALS: BMI 18.8
--- NOTE | 2021-11-03 | DI.RAD.S_ITS ---
PROCEDURE: XR KUB INDICATIONS: Right nephrolithiasis TECHNIQUE: One view of the abdomen acquired. COMPARISON: [facility], , XR KUB, 10/09/2021, 10:51. FINDINGS: Surgical changes and devices: None. Bowel: Bowel gas pattern is normal. Soft tissues: 4 small calcifications project over the right kidney compatible with known renal stones. Visualized solid organ contours appear normal in size. Bones: No suspicious bony lesions. IMPRESSION: Right-sided renal stones unchanged compared to October 09, 2021. Dictated by: Maryam Soto MD, PhD on 11/03/2021 at 7:42 Approved by: Maryam Soto MD, PhD on 11/03/2021 at 7:44
[2021-11-03 06:45] VITALS: BP 145/72; PULSE 56; RESP 16; TEMP 36.2; O2SAT 100
[2021-11-03 06:53] VITALS: BMI 18.8
[2021-11-03] MEDS: LACTATED RINGERS 1,000 ML 42 ML IV (07:11)
--- NOTE | 2021-11-03 07:41 | PM.PREOP ---
Pre-operative Note COVID-19 Criteria for continued procedure: Possibility delay results in more complex future surgery or treatment, Deterioration of the patient's condition or overall health, Delay expected to result in less-positive ultimate med/surg outcome and Non-surgical alternatives not available or appropriate per current SOC Interval Note History & Physical reviewed/Exam performed by Physician: Yes Changes to H&P: No
--- NOTE | 2021-11-03 08:03 | SUR.OPER ---
Supine on ESWL bed, head on pillow, arms at sides, legs uncrossed, tape over blanket over lower legs, wedge under BL lower extemities.
[2021-11-03 08:53] VITALS: BP 156/79; PULSE 79; RESP 16; TEMP 36.3; O2SAT 99
--- NOTE | 2021-11-03 08:54 | P.OP_ITS ---
Operative Date/Time/Diagnoses Date of procedure: 11/03/21 Time of procedure: 08:35 Pre-op diagnosis: 1. Multiple right renal calculi. 2. History of right renal colic. Post-op diagnosis: same Procedure & Clinicians Procedure: 1. Right extracorporeal shockwave lithotripsy Same procedure as scheduled: Yes Indications: 1. Multiple right renal calculi. 2. History of right renal colic. Surgeon: Marcello Mcnamara Click Yes if Unassisted: Yes Anesthesia Type: General Operative Notes Findings: The index calculi were unchanged in number and position compared to preoperative imaging. Closure Type: not applicable Specimen(s): none sent Estimated Blood Loss (mL): 0 Blood products transfused: none Procedure in detail: The patient was positioned in supine was administered general anesthesia. The above described calculi were individually localized in the X, Y, and Z plane in sequence. Lithotripsy was begun at minimal power level 200 shocks. A 2 minute pause was then conducted. Lithotripsy was in resumed and the power level was gradually increased to maximum 7.0. The individual stones and the fragments were really localized has needed fluoroscopically throughout the treatment. And 2000 shocks there was no radiographically evident residual fragments. Treatment was halted. Patient was then awakened, transferred to [facility], and transported to recovery in stable condition. Complications: none Post-operative Condition: stable Disposition: PACU Plan for aftercare: Discharge home.
[2021-11-03 09:09] VITALS: BP 154/77; PULSE 73; RESP 16; TEMP 36.3; O2SAT 98
== END 2021-11-03 09:40 | disposition home or self-care (01) ==
PROVIDERS: PCP Family Medicine; Referring Provider Specialist; Visit Provider Specialist
PROC: (CPT 50590; principal; 2021-11-03 07:45)
DX: N20.0 Calculus of kidney (principal)
CPT/HCPCS: 50590; 00872; 74018; 82962; J2250; J2405; J2704; J3010

== ENCOUNTER → 2021-11-08 14:29 | Outpatient (ROUT) | payer MEDICARE, SELFPAY ==
[2021-11-13 13:36] LABS: Ca oxalate monohydr 100 % (.); Size 3x2 mm (.)
== END ==
PROVIDERS: PCP Family Medicine; Visit Provider Specialist
DX: N20.0 Calculus of kidney (principal)
CPT/HCPCS: 82365

== ENCOUNTER → 2021-12-11 14:10 | Outpatient (CLI) | payer MEDICARE, SELFPAY ==
--- NOTE | 2021-12-11 14:11 | DI.RAD.S_ITS ---
PROCEDURE: XR KUB INDICATIONS: kidney and ureter calculi TECHNIQUE: One view of the abdomen acquired. COMPARISON: [facility], , XR KUB, 11/03/2021, 6:40. FINDINGS: Surgical changes and devices: None. Bowel: Bowel gas pattern is normal. Soft tissues: No renal stones are identified on this study, however the study is less well penetrated compared to the prior x-ray on 11/03/2021, decreasing sensitivity. No suspicious abdominal calcifications. Visualized solid organ contours appear normal in size. Bones: No suspicious bony lesions. IMPRESSION: Previously seen right-sided renal stones on the 11/03/2021 x-ray are not seen, however this x-rays less well penetrated, which could decreased sensitivity. CT could be performed if clinically indicated. Dictated by: Raza Cartwright M.D. on 12/14/2021 at 11:34 Approved by: Raza Cartwright M.D. on 12/14/2021 at 11:36
== END ==
PROVIDERS: PCP Family Medicine; Referring Provider Specialist; Visit Provider Specialist
DX: N20.2 Calculus of kidney with calculus of ureter (principal)
CPT/HCPCS: 74018

== ENCOUNTER → 2022-03-19 14:20 | Outpatient (CLI) | payer MEDICARE, SELFPAY ==
--- NOTE | 2022-03-19 14:21 | DI.RAD.S_ITS ---
PROCEDURE: XR KUB INDICATIONS: calculus of kidney and ureter TECHNIQUE: One view of the abdomen acquired. COMPARISON: [facility], CR, XR KUB, 12/11/2021, 14:25. [facility], CR, XR KUB, 11/03/2021, 6:40. FINDINGS: Surgical changes and devices: None. Bowel: Bowel gas pattern is normal. Soft tissues: Numerous suspected renal calculi measuring 1-3 mm project over the right and left renal fossa. Stool somewhat limits evaluation. Pelvic calcifications are indeterminate, most commonly phleboliths. Bones: No suspicious bony lesions. IMPRESSION: Suspected small intrarenal calculi as above. [place] may be slightly increased from prior. Dictated by: Jesse Goldstein M.D. on 03/19/2022 at 16:46 Approved by: Jesse Goldstein M.D. on 03/19/2022 at 16:47
== END ==
PROVIDERS: PCP Family Medicine; Referring Provider Specialist; Visit Provider Specialist
DX: N20.2 Calculus of kidney with calculus of ureter (principal)
CPT/HCPCS: 74018